=== PATIENT | female | born 1965 | race Caucasian/White ===

== ENCOUNTER 2018-06-20 07:25 | Emergency (ER) | payer MEDICARE, SELFPAY ==
[2018-06-20 07:35] VITALS: BP 149/89; PULSE 90; RESP 18; TEMP 36.7; O2SAT 98
--- NOTE | 2018-06-20 07:52 | DI.REPORT_ITS ---
SYMPTOM/DIAGNOSIS: PAIN, S/P FALL LEFT KNEE: There is no evidence of a fracture or dislocation. LEFT ANKLE: There is no evidence of a fracture or dislocation.
[2018-06-20] MEDS: Acetaminophen 500 MG TAB 1000 MG PO (08:05)
[2018-06-20] MEDS: Ibuprofen 800 MG TAB PO (08:22)
--- NOTE | 2018-06-20 09:34 | ED.GENADUL ---
Disposition Clinical Impression: Left ankle pain, Left knee pain Disposition: HOME Condition: Good Instructions: RICE Therapy (ED) Additional Instructions: Please take Tylenol, Motrin, and use ice on your knee and ankle. Please follow-up with your specialist as soon as possible. If you notice any worsening of your symptoms, or any new symptoms such as vomiting, diarrhea, fever, chills, shortness of breath, chest pain, numbness, weakness, or fainting , please return immediately to the emergency department for reevaluation. Please follow up with your primary care provider as soon as possible for reassessment and reevaluation. As always, it was a pleasure participating in your medical care today. Prescriptions: Acetaminophen [Tylenol Extra Strength] 1,000 mg PO Q6H 5 Days #60 tab Ibuprofen [Motrin Ib] 600 mg PO Q6H 5 Days #60 tablet Referrals: Owen Duarte PA [Primary Care Provider] - Medical Decision Making - Medical Decision Making This is a 53-year-old female who presents after she was walking down the stairs and her dog hit her from behind on her left leg. She had immediate pain behind the left leg and the left ankle. She did not have a true fall, she did not hit her head and her chest. She denies hearing any pops. She has been able to ambulate ever since with a mild limp. Here in the emergency department she was given Tylenol and Motrin and was able to ambulate well to the bathroom without significant difficulty. X-rays were evaluated and shows no signs of significant fracture and with no significant joint laxity I feel that severe injury is unlikely. I did contact the radiologist and discussed the case with with him. He reviewed the images, and sees no acute process in the knee or ankle. We did discuss with the patient potential of a lace up splint versus walking boot, and the patient is requesting a walking boot specifically. We will Jonathan wrap her knee. She refused a knee hinged brace. We have discussed red flags for which to follow-up with the patient understands. Diagnosis ankle and knee sprain I have extensively reviewed the treatment plan and discharge instructions with the patient. I have addressed all patient concerns at this time. The patient was made aware of what symptoms to monitor for that would warrant a return to the emergency department. Discussed the plan with the patient, they demonstrate verbal understanding and agreement with our assessment and plan at this time. History of Present Illness - General Chief complaint: Orthopedic Stated complaint: LEFT LEG INJURY Time Seen by Provider: 06/20/18 07:40 - History of Present Illness Initial comments: This is a 53-year-old female with a past medical history of arthritis and reflex sympathetic dystrophy who presents for left knee and ankle pain. She states that she was walking out of her house today when her dog came and pushed her from behind. She states that she immediately felt pain in her left knee, and left ankle. She did not fall to the ground or hit her head or her knees. She denies any trauma to the chest, upper extremities or right lower extremity. Patient denies any previous surgeries in these areas. She denies any numbness tingling or weakness. Pain is worse with movement. It is improved with nothing she was able to walk in on her own. She does walk with a very mild limp. She has no other complaints at this time. She denies any significant previous surgeries. She denies any IV or illicit drug use. - Related Data Acetaminophen [Tylenol Extra Strength] 1,000 mg PO Q6H 5 Days #60 tab 06/20/18 Ibuprofen [Motrin Ib] 600 mg PO Q6H 5 Days #60 tablet 06/20/18 Allergies Allergy/AdvReac Type Severity Reaction Status Date / Time prednisone AdvReac Intermediate Swelling/Ed Unverified 06/20/18 07:38 yudith Review of Systems Other: 10 point review of systems was performed, pertinent positives and negatives are noted in the history of present illness. Past Medical History - Past Medical History Medical history: hyperlipidemia Surgical history: no surgical history General Exam - Other Other exam information: 1.Const: Well-nourished, Well-developed, appearing stated age 2.Eyes: PERRL, no conjunctival injection, and symmetrical lids. 3.ENT: Atraumatic external nose and ears. Moist MM. Neck: Symmetric, trachea midline, No thyromegaly. 4.CVS: +S1/S2, No murmurs or gallops. Peripheral pulses 2+ and equal in all extremities. Brisk capillary refill in all extremities. 5.RESP: Unlabored respiratory effort. Clear to auscultation bilaterally. No wheezes rales or rhonchi 6.GI: Soft, Nontender/Nondistended, No hepatosplenomegaly. No guarding or rebound. 7.MSK: Normocephalic/Atraumatic, Extremities w/o deformity. No cyanosis or clubbing, Normal movement of all extremities. No evidence of bruising trauma or excoriations. Patient does have notable tenderness at nearly every point of palpation on the knee, as well as the ankle, particularly the lateral component of the ankle by the distal lateral malleoli. No joint laxity noted on exam for the knee or the ankle. Capillary refill is brisk. Dorsalis pedis pulses +2. 8.Skin: Warm, Dry. No rashes or lesions. 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 Sensation grossly intact, no focal neurologic deficits. 10.Psych: (AAO) x3. Appropriate mood and affect Course Vital Signs - 24 hr 06/20/18 07:35 Temperature 36.7 C Pulse 90 Respiratory 18 Rate Blood Pressure 149/89 Pulse Oximetry 98
== END 2018-06-20 09:44 | disposition home or self-care (01) ==
LOC: ER 12-19 09:48
PROVIDERS: Emergency Provider Student in an Organized Health Care Education/Training Program; PCP Physician Assistant Medical
DX: M25.571 Pain in right ankle and joints of right foot (principal); M25.562 Pain in left knee; W54.1XXA Struck by dog, initial encounter; X50.9XXA Other and unspecified overexertion or strenuous movements or postures, initial encounter
CPT/HCPCS: 29515 ×2; 73562; 73610; 99284 ×2; L4361

== ENCOUNTER 2019-07-01 00:57 | Outpatient (CLI) | payer MEDICARE, SELFPAY ==
--- NOTE | 2019-07-01 16:45 | DI.MAMMO_ITS ---
SYMPTOM/DIAGNOSIS: HEALTH SCREENING Z13.9 MAMMOGRAM: 07/01 Mammograms were interpreted according to the usual protocol including computer analysis with CAD system, tomosynthesis and C view imaging. The beasts are heterogeneously dense. No dominant mass or clumped microcalcification is identified in either breast. Well circumscribed low density nodule of the medial central aspect of the left beast is unchanged in appearance in comparison with examination of Sep 2016. No other significant change seen. CONCLUSION: No specific evidence of malignancy at this time. Routine screening examinations are suggested at yearly intervals due to the family history of breast carcinoma. Category 1, breast density category C. MQSA ASSESSMENT OF FINDINGS: Negative. Category 1. Patient will receive a letter notifying them of these results. Bi-RADS category C. The breasts are heterogeneously dense, which may obscure small masses.
== END 2019-07-01 01:17 ==
PROVIDERS: PCP Physician Assistant Medical; Visit Provider Physician Assistant Medical
DX: Z12.31 Encounter for screening mammogram for malignant neoplasm of breast (principal); Z80.3 Family history of malignant neoplasm of breast
CPT/HCPCS: 77063; 77067

== ENCOUNTER 2021-04-28 18:17 | Outpatient (REF) | payer MEDICARE, SELFPAY ==
--- NOTE | 2021-04-28 17:30 | PAPFT_PTH ---
PATIENT: Elvis Vizcarra LOC: [facility]#:[id number] AGE/SX: 56/F ROOM: RE04/28/[address]: Owen Duarte : 1965 BED: DIS: 04/28/2021 SPEC #: [id number] RECD: 04/29/21 12:35 STATUS: ROMAINE GEORGES #: [id number] KYLAH: 04/28/21 17:[address]: Owen Duarte DEPT: [facility] Cytology RECD BY: Mara Phillips Tissues: 1 - CX/ENDOCX FOR PAP SMEARS Procedures: PAP THIN PREP/UVM Screening Comments: [id number]
== END 2021-04-28 18:18 | disposition home or self-care (01) ==
LOC: NCHCN 18:17
PROVIDERS: PCP Physician Assistant Medical; Visit Provider Physician Assistant Medical
DX: Z12.4 Encounter for screening for malignant neoplasm of cervix (principal)
CPT/HCPCS: 80053; 80061; 88142

== ENCOUNTER 2021-05-25 02:25 | Outpatient (CLI) | payer MEDICARE, SELFPAY ==
--- NOTE | 2021-05-25 | DI.MAMMO_ITS ---
Exam(s) MAMMO SCREENING EXAM: MAMMO SCREENING CLINICAL HISTORY: HEALTH SCREENING, Z13.9. TECHNIQUE: Bilateral full field digital CC and MLO mammographic images were obtained with 3D tomosyn thesis and utilizing computer aided detection (CAD). COMPARISON: Prior mammograms dating back to 2013, the most recent being June 2019. Significant family history. Her mother was diagnosed with breast cancer. Patient apparently does no t recall at what age. FINDINGS: Fibroglandular tissue pattern is moderately dense, somewhat decreasing the sensitivity of the mammogr am for finding hidden underlying lesions. Previously described well-defined noncalcified 11 by 7 millimeter nodule in the medial aspect of the left breast is again noted. On the present study there is a suggestion of a smaller nodule adjacent to it measuring 5 x 4 millimeters, located 3-4 cm in from the nipple. Recommend spot compression and ultrasound. There are no malignant-appearing microcalcification groups in this region or elsewhere in either breast. On the present study there is also subtle suggestion of a noncalcified asymmetric density anteriorly in the opposite-right breast approximately 1.5 cm in from the nipple, slightly lateral of center. Sp ot compression view recommended There is no significant architectural distortion nor skin thickening-retraction. IMPRESSION: 1. New 5 x 4 millimeter noncalcified nodule in left breast adjacent to the previously described stabl e nodule. Spot compression views and ultrasound recommended. 2. Possible new nodule anteriorly in the opposite-right breast. Spot compression view and ultrasound recommended. Given the above findings, this patient's breast density, and her significant family history (mother diagnosed with breast cancer) I recommend that her ultrasound examination be a bilateral complete georgiana ast ultrasound study. BI-RADS Category 0 - Assessment Incomplete: Need additional imaging evaluation Breast Density - Category C - Heterogeneously dense Breast density Category C or D implies that the patient has dense breast tissue. Dense breast tissue can make it harder to find cancer on a mammogram. Dense breast tissue is also associated with an incr eased risk of breast cancer. This information about the result of the mammogram report was provided to the patient to raise their awareness. Use this report when you speak with the patient about their risks for breast cancer, which includes their family history. At that time, you may recommend additional screening tests (Ultrasoun d or MRI) as these tests may add significant information. A negative radiographic report should not delay biopsy if a dominant or clinically suspicious mass is present. Up to ten percent of cancers are not identified on mammography. A negative report may reinforce clinical impression. Adenosis and dense breasts may obscure an underlying neoplasm. False positive reports average 6 to 10%. Patient will receive a letter notifying them of these results.
== END 2021-05-25 02:45 ==
PROVIDERS: PCP Physician Assistant Medical; Visit Provider Physician Assistant Medical
DX: Z12.31 Encounter for screening mammogram for malignant neoplasm of breast (principal); R92.8 Other abnormal and inconclusive findings on diagnostic imaging of breast; Z80.3 Family history of malignant neoplasm of breast
CPT/HCPCS: 77063; 77067

== ENCOUNTER 2021-06-10 03:35 | Outpatient (CLI) | payer MEDICARE, SELFPAY ==
--- NOTE | 2021-06-10 | DI.US_ITS ---
Exam(s) US BREAST RT COMPLETE EXAM: US BREAST COMPLETE BILATERAL CLINICAL HISTORY: F/U ABNL MAMMO, RT ASYMMETRIC DENSITY, ? NODULE. TECHNIQUE: Complete ultrasound of both breast was performed including all 4 quadrants of both breast s and the retroareolar regions. Both axillary regions were also scanned. Today's diagnostic bilater al mammogram as well as prior mammograms were reviewed COMPARISON: Prior mammograms were reviewed. FINDINGS: LEFT BREAST: At 10 o'clock position there are 2 adjacent findings which correspond to the finding on the mammogram. Firstly, there is a 11 x 4 millimeter cyst which corresponds to the nodule which is b een previously present. This is a simple cyst. Secondly, there is a an adjacent 3-4 millimeter microcyst which corresponds to the new finding on the mammogram. No other findings in all 4 quadrants nor in the retroareolar region of the left breast. No axillary adenopathy. RIGHT BREAST: There are a few small periareolar microcysts, the largest measuring 4-5 millimeters. I n addition, there is a small conglomeration of microcysts measuring 3 x 2 millimeters which most prob ably corresponds to the finding on the mammogram. Most importantly, there are no solid lesions. No significant axillary adenopathy IMPRESSION: 1. Benign bilateral ultrasound findings as described above. Appropriate follow-up is to keep this patient yearly mammogram schedule, with earlier imaging if a se lf detected breast change is noted. BI-RADS Category 2 - Benign Findings Breast Density - Category C - Heterogeneously dense Breast density Category C or D implies that the patient has dense breast tissue. Dense breast tissue can make it harder to find cancer on a mammogram. Dense breast tissue is also associated with an incr eased risk of breast cancer. This information about the result of the mammogram report was provided to the patient to raise their awareness. Use this report when you speak with the patient about their risks for breast cancer, which includes their family history. At that time, you may recommend additional screening tests (Ultrasoun d or MRI) as these tests may add significant information. A negative radiographic report should not delay biopsy if a dominant or clinically suspicious mass is present. Up to ten percent of cancers are not identified on mammography. A negative report may reinforce clinical impression. Adenosis and dense breasts may obscure an underlying neoplasm. False positive reports average 6 to 10%. Patient will receive a letter notifying them of these results.
--- NOTE | 2021-06-10 | DI.US_ITS ---
Exam(s) US BREAST LT COMPLETE EXAM: US BREAST LT COMPLETE CLINICAL HISTORY: F/U ABNL MAMMO, R92.8, ? ADDITIONAL SMALLER NODULE. TECHNIQUE: Complete ultrasound of the breast was performed including all 4 quadrants, the retroareo lar region, and the ipsilateral axilla. COMPARISON: Prior mammograms were reviewed. FINDINGS: SEE COMBINED REPORT IMPRESSION: SEE COMBINED REPORT Appropriate follow-up is . Category: Density: Breast density Category C or D implies that the patient has dense breast tissue. Dense breast tissue can make it harder to find cancer on a mammogram. Dense breast tissue is also associated with an incr eased risk of breast cancer. This information about the result of the mammogram report was provided to the patient to raise their awareness. Use this report when you speak with the patient about their risks for breast cancer, which includes their family history. At that time, you may recommend additional screening tests (Ultrasoun d or MRI) as these tests may add significant information. A negative radiographic report should not delay biopsy if a dominant or clinically suspicious mass is present. Up to ten percent of cancers are not identified on mammography. A negative report may reinforce clinical impression. Adenosis and dense breasts may obscure an underlying neoplasm. False positive reports average 6 to 10%. Patient will receive a letter notifying them of these results.
--- NOTE | 2021-06-10 13:51 | DI.MAMMO_ITS ---
Exam(s) MG MAMMO SCREEN CALL BACK BI EXAM: MAMMO SCREEN CALL BACK BILATERAL CLINICAL HISTORY: F/U ABNL MAMMO, ? ADDITIONAL SMALLER NODULE LT, ASYMMETRIC DENSITY RT BREST. TECHNIQUE: BILATERAL spot mammographic images were obtained with 3D tomosynthesis and utilizing comp uter aided detection (CAD). . Complete BILATERAL breast Ultrasound was also performed, including all 4 quadrants, the retroareolar region, and the BILATERAL AXILLAE.. COMPARISON: Prior mammograms were reviewed. This additional imaging was performed due to findings described on the recent screening mammogram of . FINDINGS: Additional mammographic views performed todayreveal definite 2 adjacent nodules on the left side.Thes e are both shown to be cysts on ultrasound performed immediately following this mammogram today. Additional mammographic views of the right breast is equivocal. Ultrasound performed today reveals only benign-appearing findings and what appears to be a small volodymyr lomeration microcysts accounting for this anteriorly located right breast finding.. IMPRESSION: 1. Bilateral right breast nodules, as described above. 2. Bilateral breast ultrasound performed today showed both findings to be benign. Please refer to th at separate breast ultrasound report which was dictated today. Appropriate follow-up, as discussed by myself with the patient today, is to keep this patient yearly mammogram schedule, with earlier imaging if a self detected breast changes noted. The patient was informed of these findings and recommendations by myself prior to leaving the departm ent today. BI-RADS Category 2 - Benign Findings Breast Density - Category C - Heterogeneously dense Breast density Category C or D implies that the patient has dense breast tissue. Dense breast tissue can make it harder to find cancer on a mammogram. Dense breast tissue is also associated with an incr eased risk of breast cancer. This information about the result of the mammogram report was provided to the patient to raise their awareness. Use this report when you speak with the patient about their risks for breast cancer, which includes their family history. At that time, you may recommend additional screening tests (Ultrasoun d or MRI) as these tests may add significant information. A negative radiographic report should not delay biopsy if a dominant or clinically suspicious mass is present. Up to ten percent of cancers are not identified on mammography. A negative report may reinforce clinical impression. Adenosis and dense breasts may obscure an underlying neoplasm. False positive reports average 6 to 10%. Patient will receive a letter notifying them of these results.
== END 2021-06-10 03:55 ==
PROVIDERS: PCP Physician Assistant Medical; Visit Provider Physician Assistant Medical
DX: Z12.31 Encounter for screening mammogram for malignant neoplasm of breast (principal); N64.89 Other specified disorders of breast; N63.10 Unspecified lump in the right breast, unspecified quadrant
CPT/HCPCS: 76642; 77063; 77067

== ENCOUNTER 2023-04-28 09:32 | Outpatient (REF) | payer MEDICARE, SELFPAY ==
[2023-04-28 17:34] LABS: ALT 15 U/L (14-59); AST 16 U/L (15-37); Albumin 4.2 g/dL (3.4-5.0); Alkaline Phosphatase 145 U/L (46-116); Anion Gap 5.6 mmol/L (3-11); BUN 11 mg/dL (7-18); Bilirubin, Total 0.4 mg/dL (0.2-1.0); CO2 32.4 mmol/L (21.0-32.0); CREATININE 0.8 mg/dL (0.55-1.02); Calculated LDL 254 mg/dL (<100); Chloride 102 mmol/L (98-107); Cholesterol 321 mg/dL (<200); Estimated GFR 86.42 (mL/min/1.73m2); Glucose 106 mg/dL (74-106); HDL Cholesterol 41 mg/dL (40-60); Potassium 4.1 mmol/L (3.5-5.1); Sodium 140 mmol/L (136-145); Total Protein 8.6 g/dL (6.4-8.2); Triglyceride 133 mg/dL (<150)
== END 2023-04-28 09:33 | disposition home or self-care (01) ==
LOC: NCHCN 09:32
PROVIDERS: PCP Physician Assistant Medical; Visit Provider Physician Assistant Medical
DX: Z13.9 Encounter for screening, unspecified (principal)
CPT/HCPCS: 80053; 80061

== ENCOUNTER 2023-05-17 01:48 | Outpatient (CLI) | payer MEDICARE, SELFPAY ==
--- NOTE | 2023-05-17 17:00 | DI.MAMMO_ITS ---
Exam(s) MAMMO SCREENING EXAM: MAMMO SCREENING CLINICAL HISTORY: SCREENING, Z12.39 TECHNIQUE: Mammograms were interpreted according to the usual protocol including computer analysis w [employer] CAD system, tomosynthesis and C-view imaging. COMPARISON: 2013 through 2020 FINDINGS: The breasts are composed of heterogeneously dense fibroglandular densities, Breast Density category C . No suspicious masses or suspicious microcalcifications are seen. Stable area of nodularity in the me dial left breast. Previously noted nodule in the subareolar region of the right breast is not identi fied on today's exam. No skin thickening or abnormal axillary lymph nodes are seen. There has been no significant change from prior exams. IMPRESSION: BI-RADS Cat 2 - Benign Findings Yearly screening mammography is recommended. Breast Density Category C, heterogeneously Dense. The mammogram demonstrates the patient's breast tissue is dense. Dense breast tissue is very common a nd is not abnormal but dense breast tissue can make it harder to find cancer on a mammogram. Also, de nse breast tissue may increase breast cancer risk. This information about the result of the mammogram report was provided to the patient to raise their awareness. Use this report when you speak with the patient about their risks for breast cancer, which includes their family history. At that time, you may recommend additional screening tests (Ultrasound or MRI) as they might be useful based on their r isk. A negative radiographic report should not delay biopsy if a dominant or clinically suspicious mass is present. Up to ten percent of cancers are not identified on mammography. A negative report may reinforce clinical impression. Adenosis and dense breasts may obscure an underlying neoplasm. False positive reports average 6 to 10%.
== END 2023-05-17 02:08 ==
LOC: DI 01:48
PROVIDERS: PCP Physician Assistant Medical; Visit Provider Physician Assistant Medical
DX: Z12.31 Encounter for screening mammogram for malignant neoplasm of breast (principal)
CPT/HCPCS: 77063; 77067

== ENCOUNTER 2023-07-08 17:20 | Emergency (ER) | payer MEDICARE, SELFPAY ==
[2023-07-08 17:24] VITALS: BP 153/89; PULSE 91; RESP 18; TEMP 36.4; O2SAT 98
--- NOTE | 2023-07-08 17:45 | DI.RAD_ITS ---
Exam(s) XR KNEE RT 3V AP,LAT,SILVIA EXAM: XR KNEE RT 3V AP,LAT,SILVIA CLINICAL HISTORY: Right knee pain. TECHNIQUE: 2D digital imaging was performed of the right knee. Three views obtained. AP, lateral an d PA tunnel views were obtained. COMPARISON: No exams were available for comparison FINDINGS: BONES: No acute fracture is present. No bony destructive lesion is seen. There is an enthesophyte at the superior patella. JOINTS: The knee is normally aligned. No joint effusion is seen. SOFT TISSUE: Normal. IMPRESSION: Unremarkable radiographs of the right knee. DATA REPOSITORY: RADIATION DOSE DELIVERED:
--- NOTE | 2023-07-08 17:46 | W.ED.GENAD ---
Discharge Plan Disposition Patient Disposition: Home Discharge Details Clinical Impression: Abrasion of right knee, Immunization, tetanus-diphtheria Primary Care Provider: Owen Duarte ED Provider: Juve Nobles Home Meds and New Rx's Prescriptions: Continued acetaminophen [Mapap Extra Strength] 500 MG tablet 1,000 mg PO Q6H 5 Days Qty: 60 0RF Ibuprofen [Motrin Ib] 200 MG Tablet 600 mg PO Q6H 5 Days Qty: 60 0RF Discharge Instructions Additional Instructions: You are seen in the emergency department for your knee pain. Your x-ray showed no sign of any fractures. You are receiving a knee immobilizer. You may bear weight on your right lower extremity. Please follow-up with your primary care provider later this week. As we discussed if you fall again on your knee develop worsening weakness or any numbness or tingling in your foot please return to the emergency department. Discharge Data Discharge Date/Time-TO BE ENTERED AT DEPARTURE: 07/08/23 19:15 Medical Decision Making This is an overall very well-appearing normothermic and not tachycardic 58-year-old female with acute on chronic right knee pain concerning for fracture versus ligamentous injury. No pain out of proportion to suggest necrotizing soft tissue infection. Patient is able to straight leg raise so I am not suspicious for any quadriceps tendon injury. Right foot warm and well-perfused so I am not concerned for critical limb ischemia and I do not feel that the patient requires a CT angiogram of her right lower extremity. No calf pain nor proximal thigh pain to suggest DVT. No fluctuance to suggest abscess. No significant erythema to suggest cellulitis. Patient does have an abrasion to her right knee for which we will update her tetanus status. We will treat pain with acetaminophen and ibuprofen. Given the duration of time since her injury and her ability to bear weight my suspicion for tibial plateau fracture is exceedingly low so if her radiographs are read as negative will defer CT scan at this point time. No significant swelling to suggest septic joint. No significant effusion to suggest benefit from arthrocentesis. Abrasion is superficial so I am not concern for traumatic arthropathy. 6:51 PM Plain films negative for any acute osseous abnormalities. I offered the patient a knee immobilizer which she accepted. I offered her crutches which she declined. I asked health community representative Vanita to have the patient seen within the week by her primary care provider. HPI General Date/Time Provider Initiated Documentation: 07/08/23 17:45. HPI Narrative: This is a 58-year-old female arrived to the emergency department via private vehicle in the setting of right knee pain. Patient reports that she initially injured her knee 4 months ago when she inadvertently walked into a trailer hitch in the dark. She had subsequent pain which responded well to conservation treatment as she did not seek care for her injury initially. Approcimately ten days ago, she reinjured the same knee by inadvertently falling into a manhole. Tonight her knee began giving out on her. She is not anticoagulant. She denies any surgeries to her knee in the past. She has not had any numbness or tingling in her right foot. She is not a diabetic. She did not strike her head nor lose consciousness. She denies any fevers chills nausea and vomiting. Related Data Home Medications Medication Instructions Recorded Confirmed Ibuprofen [Motrin Ib] 600 mg PO Q6H 5 days ##60 06/20/18 acetaminophen 500 mg tablet (Mapap 1,000 mg PO Q6H 5 days #60 tabs 06/20/18 Extra Strength) Previous Rx's Medication Instructions Recorded Ibuprofen [Motrin Ib] 600 mg PO Q6H 5 days ##60 06/20/18 acetaminophen 500 mg tablet (Mapap 1,000 mg PO Q6H 5 days #60 tabs 06/20/18 Extra Strength) Allergies Allergy/AdvReac Type Severity Reaction Status Date / Time prednisone AdvReac Intermediate Swelling/Ed Unverified 06/20/18 07:38 yudith General Stated Complaint: Orthopedic VERONIKA: 4 PFSH All Active Problems (Updated 07/08/23 @ 18:06 by Juve Nobles MD) Abrasion of right knee (Acute) Immunization, tetanus-diphtheria (Acute) Social History Smoking/Tobacco Use Status: Current every day Smoking risk assessment performed?: Yes Alcohol Intake: current Alcohol Intake frequency: a few times a month Alcohol type: other Drug use: Never Substance use type: does not use Housing: house Do you feel safe at home: Yes Do you feel safe in your relationship?: Yes Exam Narrative Exam Narrative: General: Well-appearing in no acute distress speaking in complete sentences. Head: Normocephalic, atraumatic. Eye: Pupils equal, round reactive to light. Extraocular eye movements intact. No conjunctival injection. No scleral icterus. Ear, nose, mouth, throat: Grossly normal inspection. Normal voice, handling secretions normally. Neck: Trachea midline. Cardiovascular: Well-perfused distal extremities. Respiratory: Nonlabored respiration. Gastrointestinal: Nondistended abdomen. Musculoskeletal: On the lateral aspect of the patient's right knee there is an approximately 1/2 cm abrasion. Patient is able to straight leg raise. Right foot warm well perfused with 2+ PT and DP pulses. Cap refill less than 2 seconds in the right toes. Sensation intact in the dorsal webspace between the first and second toes. No significant laxity to right knee on valgus nor varus stress testing. No lacerations. No ecchymosis. Patient is able to fully extend right knee. Patient is able to flex right knee to approximately 90 degrees. Skin: Normal for age and race, grossly normal temperature and turgor. No acute rash. Neurologic: Alert and appropriate, no apparent acute deficits. Psychiatric: Mood and manner are appropriate. Grooming and personal hygiene are appropriate. Course Vital Signs Vital signs: Vital Signs Temperature 36.4 C L 07/08/23 17:24 Pulse 91 H 07/08/23 17:24 Respiratory Rate 18 07/08/23 17:24 Blood Pressure 153/89 H 07/08/23 17:24 Pulse Oximetry 98 07/08/23 17:24 Temperature 36.4 C L 07/08/23 17:24 Temperature Source Skin 07/08/23 17:24 Pulse 91 H 07/08/23 17:24 Respiratory Rate 18 07/08/23 17:24 Respiratory Effort Normal, Non-Labored 07/08/23 17:40 Blood Pressure 153/89 H 07/08/23 17:24 Blood Pressure Position Sitting 07/08/23 17:24 Pulse Oximetry 98 07/08/23 17:24 Oxygen Delivery Method Room Air 07/08/23 17:24 Oxygen Flow Rate 0 07/08/23 17:24 Pain Level 7 07/08/23 17:24 Comment takes wily farah has been using heat which makes it feel better 07/08/23 17:24 PAWSS Have you Been Recently Intoxicated or Drunk Within the Last 30 days?: No Have you Ever Experienced Previous Episodes of Alcohol Withdrawal?: No Have you ever Experienced Withdrawal Seizures?: No Have you ever Experienced Delirium Tremens(DT)s?: No Have you ever undergone Alcohol Rehabilitation Treatment (i.e, inpt ot outpatient treatment programs)?: No Have you ever Experienced Blackouts?: No Have you ever Combined Alcohol with other Downers within the last 90 days?: No Have you ever Combined Alcohol with any other Substance of Abuse during the last 90 days?: No Result: 0
--- NOTE | 2023-07-08 18:00 | DI.RAD_ITS ---
Exam(s) XR TIB/FIB RT EXAM: XR TIB/FIB RT CLINICAL HISTORY: tib pain. TECHNIQUE: 2D digital imaging was performed of the right tibia and fibula. Three images were obtaine d. AP and lateral views were obtained. COMPARISON: No exams were available for comparison FINDINGS: BONES: No acute fracture is present. No bony destructive lesion is seen. Visualized portion of knee a nd ankle joints are unremarkable. There is enthesophyte at the posterior patella. SOFT TISSUE: Normal. IMPRESSION: Unremarkable radiographs of the right tibia and fibula. DATA REPOSITORY: RADIATION DOSE DELIVERED:
[2023-07-08] MEDS: Ibuprofen 600 MG TAB PO (18:38)
[2023-07-08] MEDS: Acetaminophen 500 MG TAB 1000 MG PO (18:38)
--- NOTE | 2023-07-08 18:39 | DI.VRAD_ITS ---
PROCEDURE INFORMATION: Exam: XR Right Knee Exam date and time: 07/08/2023 6:05 PM Age: 58 years old Clinical indication: Other: Knee pain TECHNIQUE: Imaging protocol: Radiologic exam of the right knee. Views: 3 views. COMPARISON: CR RIGHT ANKLE COMPLETE 09/28/2017 7:00 PM FINDINGS: Bones/joints: No significant joint effusion. No acute fracture or subluxation. Soft tissues: Benign appearing distal quadriceps enthesophyte. IMPRESSION: No acute bony pathology. Dictated and Authenticated by: Paris Mendoza MD. Ordering:JIMMY An MD
--- NOTE | 2023-07-08 18:40 | DI.VRAD_ITS ---
PROCEDURE INFORMATION: Exam: XR Right Tibia and Fibula Exam date and time: 07/08/2023 6:08 PM Age: 58 years old Clinical indication: Other: Tib fib pain TECHNIQUE: Imaging protocol: Radiologic exam of the right tibia and fibula. Views: 2 views. COMPARISON: CR RIGHT ANKLE COMPLETE 09/28/2017 7:00 PM FINDINGS: Bones/joints: No acute fracture or subluxation. Posterior calcaneal spur. Soft tissues: Unremarkable. IMPRESSION: No acute bony pathology. Dictated and Authenticated by: Paris Mendoza MD. Ordering:JIMMY An MD
--- NOTE | 2023-07-08 18:54 | NUR.NOTE ---
[facility] R [facility] pain.Nursing Note:
[2023-07-08 19:12] VITALS: BP 138/76; PULSE 72; RESP 18; TEMP 36.6; O2SAT 99
== END 2023-07-08 19:15 | disposition home or self-care (01) ==
PROVIDERS: Emergency Provider Emergency Medicine; PCP Physician Assistant Medical
DX: S80.211A Abrasion, right knee, initial encounter (principal); X58.XXXA Exposure to other specified factors, initial encounter
CPT/HCPCS: 29505; 73562; 90471; 99284; 73590

== ENCOUNTER 2023-08-16 10:49 | Outpatient (REF) | payer MEDICARE, SELFPAY ==
[2023-08-16 16:30] LABS: ALT 25 U/L (14-59); AST 22 U/L (15-37); Albumin 4.1 g/dL (3.4-5.0); Alkaline Phosphatase 136 U/L (46-116); Anion Gap 9.3 mmol/L (3-11); BUN 17 mg/dL (7-18); Bilirubin, Total 0.2 mg/dL (0.2-1.0); CO2 26.7 mmol/L (21.0-32.0); CREATININE 1.1 mg/dL (0.55-1.02); Calcium 9.7 mg/dL (8.5-10.1); Calculated LDL 118 mg/dL (<100); Chloride 103 mmol/L (98-107); Cholesterol 181 mg/dL (<200); Estimated GFR 58.97 (mL/min/1.73m2); Glucose 98 mg/dL (74-106); HDL Cholesterol 51 mg/dL (40-60); Potassium 4.5 mmol/L (3.5-5.1); Sodium 139 mmol/L (136-145); Total Protein 7.5 g/dL (6.4-8.2); Triglyceride 64 mg/dL (<150)
[2023-08-16 17:04] LABS: Hemoglobin A1C 5.9 % (<5.7)
== END 2023-08-16 10:50 | disposition home or self-care (01) ==
LOC: NCHCN 10:49
PROVIDERS: PCP Physician Assistant Medical; Visit Provider Physician Assistant Medical
DX: E78.5 Hyperlipidemia, unspecified (principal); R73.9 Hyperglycemia, unspecified
CPT/HCPCS: 80053; 80061; 83036